=== PATIENT | male | born 1985 | race Caucasian/White ===

== ENCOUNTER 2021-02-13 17:47 | Emergency (ER) | payer OTHER, SELFPAY ==
[2021-02-13 17:50] VITALS: BP 148/96; PULSE 111; RESP 18; TEMP 36.7; O2SAT 99
[2021-02-13 20:27] VITALS: BP 125/80; PULSE 90; RESP 12; TEMP 36.8; O2SAT 99
[2021-02-13] MEDS: ONDANSETRON INJ 4 MG/2 ML VIAL IV PUSH (21:32)
[2021-02-13] MEDS: SODIUM CHLORIDE 0.9% IV 1,000 ML 999 ML IV CONT (21:32)
--- NOTE | 2021-02-13 21:41 | ED.NAVMDI ---
HPI - Nausea/Vomiting/Diarrhea General Chief complaint: Nausea/Vomiting/Diarrhea Stated complaint: n/v, bloody stools Time Seen by Provider: 02/13/21 20:56 Source: patient History of Present Illness HPI Narrative: Patient presents with nausea vomiting and bloody stools. Patient reports he has had nausea vomiting and dry heaves for the past 2 months has previously been evaluated by his primary care doctor and GI. GI physician reports he has a type of morning sickness per the patient patient did not like that answer and was seeking additional evaluation. Patient also reports she has been having bloody stools he says it is a lot reports a history of hemorrhoids but this seems like it is more blood than usual so he came to the ER for evaluation. Denies any fevers, chills, lightheadedness, dizziness denies any abdominal pain. 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 Related Data Allergies Allergy/AdvReac Type Severity Reaction Status Date / Time No Known Allergies Allergy Verified 02/13/21 20:32 Review of Systems Review of Systems: CONSTITUTIONAL: Denies fever, chills, or sweats. EYES: Denies visual changes, redness, or discharge. ENT: Denies rhinorrhea, congestion, sore throat, or otalgia. CARDIOVASCULAR: Denies chest pain, palpitations, or edema. RESPIRATORY: Denies cough or dyspnea. GASTROINTESTINAL: Denies abdominal pain, nausea, vomiting, or diarrhea. GENITOURINARY: Denies dysuria or hematuria. SKIN: Denies rash or itching. MUSCULOSKELETAL: Denies back pain, joint pain, or myalgia. NEUROLOGIC: Denies headache, numbness, dizziness, or weakness. PSYCHIATRIC: Denies anxiety or depression. All systems reviewed & are unremarkable except as noted in HPI and below PMFSH Past Medical History Medical History (Updated 02/13/21 @ 23:28 by Dion Petty MD) Hemorrhoids Social History Social History (Updated 02/13/21 @ 21:43 by Dion Petty MD) Substance use: never Exam Narrative: GENERAL: Well-appearing, well-nourished, and in no acute distress. HEAD: Normocephalic, atraumatic. EYES: PERRLA and EOMI. ENT: Nares clear, no rhinorrhea or epistaxis. Mucous membranes moist. NECK: Supple. No masses. No JVD ABDOMEN: Soft, nontender, nondistended, normal active bowel sounds. RECTAL: Few external hemorrhoids noted around the 12 o'clock position with active bright red bleeding controlled with light pressure EXTREMITIES: Normal range of motion. No edema. SKIN: Warm, dry, no rash. NEURO: No focal deficits. Alert and oriented x3. PSYCH: Normal mood and affect. Course Reevaluation(s) Reevaluation #1: Patient is resting comfortably results and plan reviewed with patient. Patient comfortable outpatient plan. Date: 02/13/21 Time: 23:00 Vital Signs Vital signs: Vital Signs Temperature 36.7 C 02/13/21 17:50 Pulse Rate 111 H 02/13/21 17:50 Respiratory Rate 18 02/13/21 17:50 Blood Pressure 148/96 H 02/13/21 17:50 Pulse Oximetry 99 02/13/21 17:50 Temperature 36.8 C 02/13/21 20:27 Pulse Rate 78 02/13/21 23:34 Respiratory Rate 16 02/13/21 23:34 Blood Pressure 128/82 02/13/21 23:34 Pulse Oximetry 99 02/13/21 23:34 MDM - Nausea/Vomiting/Diarrhea MDM Narrative Medical decision making narrative: H&P as above, vss, pt looks clinically well, exam with bleeding hemorrhoids, labs clinically unremarkable, additional labs/img considered, symptomatic relief available as needed, on reevaluation pt continues to looks clinically well. Suspect hemorrhoids, dns significant hemorrhage, bowel obstruction, perforation. plan to tx/monitor as op w/ pcm f/u findings/plan discussed with pt, pt agree/comfortable with plan, return precautions given Lab Data Result diagrams: 02/13/21 21:38 02/13/21 21:38 Labs: Lab Results 02/13/21 02/13/21 02/13/21 Range/Units 21:38 21:38 21:38 WBC 8.7 (4.5-10.0) K/mm3 RBC 5.18 (
[2021-02-13 21:46] LABS: Basophils Absolute Auto 0.1 K/mm3 (0.0-0.1); Basophils Percent Auto 0.9 % (0.2-1.2); Eosinophils Absolute Auto 0.3 K/mm3 (0-0.3); Eosinophils Percent Auto 3.5 % (0-4.4); Hemoglobin 15.4 g/dL (14.0-18.0); Immature Granulocyte Absolute 0.03 K/mm3 (0.00-0.031); Immature Granulocyte Percent A 0.3 % (0-0.5); Lymphocytes Absolute Auto 2.92 K/mm3 (0.9-3.2); Lymphocytes Percent Auto 33.6 % (18.3-44.2); Mean Corpuscular Hemoglobin 29.7 pg (26-34); Mean Corpuscular Volume 84.9 fl (80-100); Mean Platelet Volume 10.3 fl (7.4-10.4); Monocytes Absolute Auto 0.6 K/mm3 (0.1-0.6); Monocytes Percent Auto 6.3 % (2.6-8.5); Neutrophils Absolute Auto 4.8 K/mm3 (1.3-6.7); Neutrophils Percent Auto 55.4 % (45.5-73.1); Platelet Count Result 285 k/mm3 (150-375); Red Blood Count 5.18 M/mm3 (4.6-6.20); Red Cell Distribution Width 12.2 % (11.5-14.5); White Blood Count 8.7 K/mm3 (4.5-10.0)
[2021-02-13 21:55] LABS: Add Urine Microscopic? YES; Appearance Urine Clear (Clear); Bilirubin Urine Negative (Negative); Blood Urine Negative (Negative); Color Urine Yellow (Yellow); Glucose Urine UA Negative (Negative); Ketones Urine Negative (Negative); Leukocyte Esterase Ur Negative LEU/UL (Negative); Mucus Urine Rare /lpf; Nitrate Urine Negative (Negative); Protein Urine Negative (Negative); RBC Urine 0-2 /hpf (0-2); Specific Grav Ur 1.016 (1.001-1.035); Squamous Epithelial Cell Urine Rare /hpf (Few); WBC Urine 0-3 /hpf
[2021-02-13 21:56] LABS: Alanine Aminotransferase 67 U/L (4-50); Albumin Level 4.8 g/dL (3.5-5.1); Alkaline Phosphatase 83 U/L (38-126); Anion Gap 9 mmol/L (8-16); Aspartate Amino Transferase 36 U/L (17-59); Bilirubin,Total 0.5 mg/dL (0.2-1.3); Blood Urea Nitrogen 8 mg/dL (9-20); Calcium 9.6 mg/dL (8.4-10.2); Carbon Dioxide 24 mmol/L (22-30); Chloride 103 mmol/L (98-107); Estimated CRCL calculation 134 ml/min; Estimated Glomerular Filt Rate > 60; Glucose 95 mg/dL (65-110); Lipase 60 U/L (23-300); Potassium 4.1 mmol/L (3.4-5.0); Sodium 136 mmol/L (137-145)
[2021-02-13 22:24] VITALS: BP 132/74; PULSE 83; RESP 19; O2SAT 99
[2021-02-13 23:34] VITALS: BP 128/82; PULSE 78; RESP 16; O2SAT 99
== END 2021-02-13 23:35 | disposition home or self-care (01) ==
PROVIDERS: Emergency Medicine; Emergency Provider Emergency Medicine
DX: R11.0 Nausea (principal); K64.9 Unspecified hemorrhoids
CPT/HCPCS: 36415; 80053; 81001; 83690; 85025; 96361; 96374; 99284; J2405; J7030